=== PATIENT | female | born 1965 ===

== ENCOUNTER 2019-03-26 10:54 | Outpatient (CLI) | payer OTHER ==
[~2019-03-26 10:54] MED LIST: AMOX1TAB5 PO; FLONASE16 GM NS; METFORMIN HCL500 MG; SYNTHROID50 MCG; TOPROL XL50 MG; ZYRTEC10 MG PO
== END 2019-03-26 11:00 | disposition home or self-care (01) ==
LOC: LAB 10:54
DX: R05 Cough (principal); J11.1 Influenza due to unidentified influenza virus with other respiratory manifestations; I10 Essential (primary) hypertension

== ENCOUNTER 2020-07-29 12:21 | Outpatient (CLI) | payer OTHER | END 2020-07-29 12:29 | disposition home or self-care (01) | LOC: RAD 12:21 | PROVIDERS: ATTEND Internal Medicine Cardiovascular Disease | DX: I10 Essential (primary) hypertension (principal); R06.02 Shortness of breath ==

== ENCOUNTER 2025-02-27 07:25 | Outpatient (CLI) | payer OTHER | END 2025-02-27 07:45 | disposition home or self-care (01) | LOC: MRI 07:25 | DX: S83.242A Other tear of medial meniscus, current injury, left knee, initial encounter (principal); M25.561 Pain in right knee; M25.562 Pain in left knee | CPT/HCPCS: 73721 ==